=== PATIENT | female | born 1995 | race Caucasian/White ===

== ENCOUNTER 2019-01-28 13:54 | Inpatient (IN) | payer OTHER, MEDICAID ==
[~2019-01-28] VITALS: Ht 170.2 cm; Wt 99.0 kg
[~2019-01-28 13:54] MED LIST: DIVA-78 PO; LURA40 PO
[2019-01-28] MEDS ORDERED: PALI3 PO (16:07)
[2019-01-28] MEDS: INFLUENZA VIRUS VACCINE QVS 2019-20 (3YR+)/PF 60 MCG/0.5 ML SYRINGE IM ONE (16:15)
[2019-01-28] MEDS ORDERED: LORazepam 2 MG TABLET PO PRN (16:30)
[2019-01-28] MEDS ORDERED: ZOLPIDEM TARTRATE 10 MG TABLET PO PRN (16:30)
[2019-01-28] MEDS ORDERED: HALOPERIDOL 5 MG TABLET PO PRN (16:30)
[2019-01-28] MEDS ORDERED: PNEUMOCOCCAL VACCINE POLYVALENT 0.5 ML VIAL [PPSV23] IM ONE (16:45)
[2019-01-28 17:54] VITALS: BP 116/78
[2019-01-28] MEDS ORDERED: ALBUTEROL SULFATE HFA 90 MCG/PUFF 8 GM INHALER IH PRN (20:45)
[2019-01-29 06:39] VITALS: BP 125/76
[2019-01-29 08:01] LABS: BASOPHILS % (AUTO) 0.4 % (0.0-2.0); EOSINOPHILS % (AUTO) 2.8 % (1.0-6.0); HEMOGLOBIN 13.3 g/dL (12.0-16.0); LYMPHOCYTES # (AUTO) 2.2 K/uL (1.0-4.8); LYMPHOCYTES % (AUTO) 23.3 % (22.0-44.0); MEAN CORPUSCULAR HEMOGLOBIN 30.1 pg (26.0-34.0); MEAN CORPUSCULAR HGB CONC 34.2 G/dL (31.0-37.0); MEAN CORPUSCULAR VOLUME 88 fL (80-100); MONOCYTES # (AUTO) 0.8 K/uL (0.1-1.0); MONOCYTES % (AUTO) 8.1 % (2.0-9.0); NEUTROPHILS # (AUTO) 6.1 K/uL (1.8-7.7); NEUTROPHILS % (AUTO) 65.4 % (40.0-70.0); PLATELET COUNT (AUTO) 265 K/uL (150-450); RED BLOOD CELL COUNT(AUTO) 4.43 MIL/uL (4.00-5.20); RED CELL DISTRIBUTION WIDTH 13.4 % (11.5-14.5)
[2019-01-29 08:09] VITALS: BP 117/61
[2019-01-29 08:32] LABS: ALANINE AMINOTRANSFERASE 13 U/L (12-78); ALBUMIN 3.8 g/dL (3.4-5.0); ALKALINE PHOSPHATASE 81 U/L (46-116); ANION GAP 8 mmol/L (8-16); ASPARTATE AMINOTRANSFERASE 11 U/L (15-37); BILIRUBIN,TOTAL 0.3 mg/dL (0.1-1.0); CALCIUM, TOTAL 9.5 mg/dL (8.8-10.5); CARBON DIOXIDE 28 mmol/L (22-29); CHLORIDE 102 mmol/L (98-107); CHOL/HDL RATIO 2.1 (3.9-5.7); CHOLESTEROL 134 mg/dL (131-200); CREATININE 0.69 mg/dL (0.60-1.30); FREE T4 (FREE THYROXINE) 0.98 ng/dL (0.76-1.46); GLOMERULAR FILTR. RATE CALC > 60 mL/min (>60); GLUCOSE,RANDOM 90 mg/dL (70-110); HCG,QUANTITATIVE < 1 mIU/mL (0-6); HDL CHOLESTEROL 63 mg/dL (40-60); LDL CHOL (CALC.) 63 mg/dL (0-130); SODIUM SERUM 138 mmol/L (136-145); THYROID STIMULATING HORMONE 1.46 uIU/mL (0.36-3.74); TOTAL PROTEIN, SERUM 7.8 g/dL (6.4-8.2); TRIGLYCERIDES 39 mg/dL (15-150); UREA NITROGEN, BLOOD 16 mg/dL (7-18)
[2019-01-29 09:48] LABS: HEMOGLOBIN A1C 5.8 % (4.5-6.2)
[2019-01-29] MEDS ORDERED: MAGNESIUM HYDROXIDE SUSPENSION 30 ML UDCUP PO PRN (13:45)
[2019-01-29] MEDS ORDERED: ONDANSETRON HCL 4 MG TABLET PO PRN (13:45)
[2019-01-29] MEDS ORDERED: CloNIDine HCL 0.1 MG TABLET PO PRN (13:45)
[2019-01-29] MEDS ORDERED: NICOTINE 14 MG/24 HOUR PATCH TD PRN (13:45)
[2019-01-29] MEDS ORDERED: MAG HYDROX/AL HYDROX/SIMETH ES 30 ML SUSPENSION UDCUP PO PRN (13:45)
[2019-01-29] MEDS ORDERED: PETROLATUM,WHITE 28 GM JELLY TP PRN (13:45)
[2019-01-29] MEDS ORDERED: LOPERAMIDE HCL 2 MG CAPSULE PO PRN (13:45)
[2019-01-29] MEDS ORDERED: IBUPROFEN 400 MG TABLET PO PRN (13:45)
[2019-01-29] MEDS ORDERED: DOCUSATE SODIUM 100 MG CAPSULE PO PRN (13:45)
[2019-01-29] MEDS ORDERED: ACETAMINOPHEN 325 MG TABLET PO PRN (13:45)
[2019-01-29] MEDS ORDERED: GuaiFENesin/D-METHORPHAN [SUGAR-FREE] 200-20MG/10 ML SYRUP UDCUP PO PRN (13:45)
[2019-01-29 16:00] VITALS: BP 123/68
[2019-01-29] MEDS ORDERED: LURASIDONE HCL 40 MG TABLET PO SCH (17:00)
[2019-01-29] MEDS: INFLUENZA VIRUS VACCINE QVS 2019-20 (3YR+)/PF 60 MCG/0.5 ML SYRINGE IM ONE (17:03)
[2019-01-29] MEDS: ALBUTEROL SULFATE HFA 90 MCG/PUFF 8 GM INHALER IH PRN ×2 (17:25→23:28)
[2019-01-30 04:00] VITALS: BP 136/90
[2019-01-30] MEDS: ALBUTEROL SULFATE HFA 90 MCG/PUFF 8 GM INHALER IH PRN ×3 (05:30→20:32)
[2019-01-30 08:11] VITALS: BP 109/63
[2019-01-30] MEDS: PALIPERIDONE 3 MG ER TABLET PO SCH (08:16)
[2019-01-30 16:11] VITALS: BP 119/60
[2019-01-31 00:42] VITALS: BP 134/69
[2019-01-31] MEDS: ALBUTEROL SULFATE HFA 90 MCG/PUFF 8 GM INHALER IH PRN (04:03)
[2019-01-31] MEDS: PALIPERIDONE 3 MG ER TABLET PO SCH (08:09)
[2019-01-31 08:34] VITALS: BP 119/64
== END 2019-01-31 11:10 | disposition home or self-care (01) | DRG 885 ==
LOC: B3A 16:19
PROVIDERS: ADMIT Psychiatry & Neurology Psychiatry; ATTEND Psychiatry & Neurology Psychiatry
DX: F20.0 Paranoid schizophrenia (principal); F10.10 Alcohol abuse, uncomplicated; J45.909 Unspecified asthma, uncomplicated; F19.10 Other psychoactive substance abuse, uncomplicated; Z88.8 Allergy status to other drugs, medicaments and biological substances; Z71.51 Drug abuse counseling and surveillance of drug abuser; Z71.41 Alcohol abuse counseling and surveillance of alcoholic
CPT/HCPCS: 83036; 84439; 84443; 87081; 90686; 90732; J3535

== ENCOUNTER 2019-12-13 05:50 | Inpatient (IN) | payer BC, MEDICAID ==
[~2019-12-13] VITALS: Ht 170.2 cm; Wt 105.1 kg
[~2019-12-13 05:50] MED LIST changes: -DIVA-78 PO; -LURA40 PO; +PALI3TAB14 PO
[2019-12-13] MEDS ORDERED: LURA40TA2 PO (05:59)
[2019-12-13] MEDS ORDERED: MELA1TAB28 PO (05:59)
[2019-12-13 06:31] LABS: BASOPHILS % (AUTO) 0.5 % (0.0-2.0); EOSINOPHILS % (AUTO) 1.4 % (1.0-6.0); HEMATOCRIT 37.4 % (36-46); HEMOGLOBIN 12.5 g/dL (12.0-16.0); LYMPHOCYTES # (AUTO) 2.5 K/uL (1.0-4.8); LYMPHOCYTES % (AUTO) 20.6 % (22.0-44.0); MEAN CORPUSCULAR HEMOGLOBIN 29.3 pg (26.0-34.0); MEAN CORPUSCULAR HGB CONC 33.3 G/dL (31.0-37.0); MEAN CORPUSCULAR VOLUME 88 fL (80-100); MONOCYTES # (AUTO) 0.8 K/uL (0.1-1.0); MONOCYTES % (AUTO) 6.6 % (2.0-9.0); NEUTROPHILS # (AUTO) 8.5 K/uL (1.8-7.7); NEUTROPHILS % (AUTO) 70.9 % (40.0-70.0); PLATELET COUNT (AUTO) 237 K/uL (150-450); RED BLOOD CELL COUNT(AUTO) 4.27 MIL/uL (4.00-5.20); RED CELL DISTRIBUTION WIDTH 13.7 % (11.5-14.5)
[2019-12-13 06:36] LABS: ANION GAP 7 mmol/L (8-16); CALCIUM, TOTAL 8.9 mg/dL (8.8-10.5); CARBON DIOXIDE 27 mmol/L (22-29); CHLORIDE 102 mmol/L (98-107); CREATININE 1.07 mg/dL (0.60-1.30); GLOMERULAR FILTR. RATE CALC > 60 mL/min (>60); GLUCOSE,RANDOM 106 mg/dL (70-110); POTASSIUM 3.8 mmol/L (3.5-5.1); SODIUM SERUM 136 mmol/L (136-145); UREA NITROGEN, BLOOD 15 mg/dL (7-18)
[2019-12-13 06:41] LABS: ALANINE AMINOTRANSFERASE 17 U/L (12-78); ALBUMIN 3.6 g/dL (3.4-5.0); ALKALINE PHOSPHATASE 76 U/L (46-116); ASPARTATE AMINOTRANSFERASE 9 U/L (15-37); BILIRUBIN,TOTAL 0.3 mg/dL (0.1-1.0); TOTAL PROTEIN, SERUM 7.3 g/dL (6.4-8.2)
[2019-12-13 06:42] LABS: ACETAMINOPHEN < 2 mcg/mL (10-30)
[2019-12-13 06:49] LABS: SALICYLATE 2.8 mg/dL (2.8-20.0)
[2019-12-13 08:59] LABS: AMPHET/METH SCREEN,URINE NEGATIVE (NEGATIVE); BARBITURATE SCREEN, URINE NEGATIVE (NEGATIVE); BENZODIAZEPINES SCREEN,URINE NEGATIVE (NEGATIVE); CANNABINOID SCREEN,URINE NEGATIVE (NEGATIVE); COCAINE SCREEN,URINE NEGATIVE (NEGATIVE); METHADONE SCREEN, URINE NEGATIVE (NEGATIVE); OPIATE SCREEN,URINE NEGATIVE (NEGATIVE)
[2019-12-13 09:00] LABS: PHENCYCLIDINE SCREEN,URINE NEGATIVE (NEGATIVE)
[2019-12-13] MEDS ORDERED: ALBUTEROL SULFATE HFA 90 MCG/PUFF 8 GM INHALER IH ONE (13:30)
[2019-12-13] MEDS ORDERED: HydrOXYzine PAMOATE 50 MG CAPSULE PO PRN (16:45)
[2019-12-13] MEDS ORDERED: PROMETHAZINE HCL 25 MG TABLET PO PRN (16:45)
[2019-12-13] MEDS ORDERED: ZOLPIDEM TARTRATE 10 MG TABLET PO PRN (16:45)
[2019-12-13] MEDS ORDERED: TUBERCULIN, PURIFIED PROTEIN DERIVATIVE 5 TU/0.1 ML SYRINGE ID ONE (16:45)
[2019-12-13] MEDS ORDERED: ACETAMINOPHEN 325 MG TABLET PO PRN (16:45)
[2019-12-13] MEDS ORDERED: MAG HYDROX/AL HYDROX/SIMETH ES 30 ML SUSPENSION UDCUP PO PRN (16:45)
[2019-12-13] MEDS ORDERED: LORazepam 2 MG TABLET PO PRN (16:45)
[2019-12-13] MEDS ORDERED: GuaiFENesin/D-METHORPHAN [SUGAR-FREE] 200-20MG/10 ML SYRUP UDCUP PO PRN (16:45)
[2019-12-13] MEDS ORDERED: LOPERAMIDE HCL 2 MG CAPSULE PO PRN (16:45)
[2019-12-13] MEDS ORDERED: MAGNESIUM HYDROXIDE SUSPENSION 30 ML UDCUP PO PRN (16:45)
[2019-12-13] MEDS ORDERED: OLANZapine 5 MG RAPDIS TABLET PO PRN (16:45)
[2019-12-13] MEDS ORDERED: [UNRECOGNIZED DRUG - CODE] PO (16:51)
[2019-12-13] MEDS ORDERED: BUDE10.26 IH (16:51)
[2019-12-13] MEDS ORDERED: CHOL100018 PO (16:51)
[2019-12-13] MEDS ORDERED: ALBU90AE2 IH (16:51)
[2019-12-13] MEDS ORDERED: MELA5TAB3 PO (16:51)
[2019-12-13 17:15] LABS: HCG,QUANTITATIVE < 1 mIU/mL (0-6)
[2019-12-13] MEDS: THIAMINE 100 MG TABLET PO SCH (18:33)
[2019-12-13 19:00] VITALS: BP 105/59
[2019-12-13] MEDS ORDERED: LITHIUM CARBONATE 300 MG CAPSULE PO SCH (21:00)
[2019-12-13] MEDS ORDERED: ASENAPINE 5 MG SUBLINGUAL TABLET SL SCH (21:00)
[2019-12-13] MEDS: ALBUTEROL SULFATE HFA 90 MCG/PUFF 8 GM INHALER IH PRN (21:15)
[2019-12-13] MEDS: MELATONIN 5 MG TABLET PO SCH (21:16)
[2019-12-14] MEDS: ALBUTEROL SULFATE HFA 90 MCG/PUFF 8 GM INHALER IH PRN ×3 (04:10→19:48)
[2019-12-14 06:37] LABS: LITHIUM < 0.20 mmol/L (0.60-1.20)
[2019-12-14 06:41] LABS: BASOPHILS % (AUTO) 0.5 % (0.0-2.0); EOSINOPHILS % (AUTO) 3.3 % (1.0-6.0); HEMATOCRIT 39.2 % (36-46); HEMOGLOBIN 13.1 g/dL (12.0-16.0); LYMPHOCYTES # (AUTO) 2.6 K/uL (1.0-4.8); LYMPHOCYTES % (AUTO) 25.3 % (22.0-44.0); MEAN CORPUSCULAR HEMOGLOBIN 29.4 pg (26.0-34.0); MEAN CORPUSCULAR HGB CONC 33.3 G/dL (31.0-37.0); MEAN CORPUSCULAR VOLUME 88 fL (80-100); MONOCYTES # (AUTO) 0.8 K/uL (0.1-1.0); MONOCYTES % (AUTO) 7.4 % (2.0-9.0); NEUTROPHILS # (AUTO) 6.5 K/uL (1.8-7.7); NEUTROPHILS % (AUTO) 63.5 % (40.0-70.0); PLATELET COUNT (AUTO) 250 K/uL (150-450); RED BLOOD CELL COUNT(AUTO) 4.44 MIL/uL (4.00-5.20); RED CELL DISTRIBUTION WIDTH 13.4 % (11.5-14.5)
[2019-12-14] MEDS: LURASIDONE HCL 60 MG TABLET PO SCH (06:43)
[2019-12-14 06:50] LABS: CHOL/HDL RATIO 2.5 (3.9-5.7); CHOLESTEROL 123 mg/dL (131-200); HDL CHOLESTEROL 49 mg/dL (40-60); LDL CHOL (CALC.) 63 mg/dL (0-130); TRIGLYCERIDES 53 mg/dL (15-150)
[2019-12-14 06:56] LABS: HEMOGLOBIN A1C 5.8 % (3.8-5.6)
[2019-12-14 08:00] VITALS: BP 115/56
[2019-12-14] MEDS ORDERED: BUDESONIDE 180 MCG/INH INHALER [120] IH SCH (09:00)
[2019-12-14] MEDS: NICOTINE 14 MG/24 HOUR PATCH TD SCH ×2 (09:00→12:02)
[2019-12-14] MEDS: FOLIC ACID 1 MG TABLET PO SCH (11:32)
[2019-12-14] MEDS: THIAMINE 100 MG TABLET PO SCH ×2 (11:32→17:47)
[2019-12-14] MEDS: BUDESONIDE/FORMOTEROL FUMARATE 160-4.5 MCG/PUFF 6.9 GM INHALER IH SCH ×2 (11:33→17:47)
[2019-12-14] MEDS: MULTIVITAMINS WITH MINERALS, THERAPEUTIC TABLET PO SCH (11:34)
[2019-12-14] MEDS: PARoxetine HCL 20 MG TABLET PO SCH (11:34)
[2019-12-14 12:00] VITALS: BP 119/65
[2019-12-14 12:42] VITALS: BP 119/65
[2019-12-14 17:53] VITALS: BP 112/66
[2019-12-14] MEDS: MELATONIN 5 MG TABLET PO SCH (20:18)
[2019-12-15] MEDS: LURASIDONE HCL 60 MG TABLET PO SCH (06:58)
[2019-12-15] MEDS: ALBUTEROL SULFATE HFA 90 MCG/PUFF 8 GM INHALER IH PRN (08:32)
[2019-12-15 08:42] VITALS: BP 115/54
[2019-12-15] MEDS: MULTIVITAMINS WITH MINERALS, THERAPEUTIC TABLET PO SCH (09:29)
[2019-12-15] MEDS: PARoxetine HCL 20 MG TABLET PO SCH (09:29)
[2019-12-15] MEDS: FOLIC ACID 1 MG TABLET PO SCH (09:29)
[2019-12-15] MEDS: BUDESONIDE/FORMOTEROL FUMARATE 160-4.5 MCG/PUFF 6.9 GM INHALER IH SCH ×2 (09:29→16:32)
[2019-12-15] MEDS: THIAMINE 100 MG TABLET PO SCH ×2 (09:29→16:32)
[2019-12-15] MEDS: NICOTINE 14 MG/24 HOUR PATCH TD SCH (09:30)
[2019-12-15 17:57] VITALS: BP 108/54
[2019-12-15] MEDS ORDERED: MELA5TAB3 PO (19:07)
[2019-12-15] MEDS ORDERED: PARO-37 PO (19:07)
[2019-12-15] MEDS ORDERED: LURA60TA PO (19:07)
[2019-12-15] MEDS: MELATONIN 5 MG TABLET PO SCH (20:23)
[2019-12-16] MEDS ORDERED: LURASIDONE HCL 80 MG TABLET PO SCH (07:30)
[2019-12-16] MEDS: ALBUTEROL SULFATE HFA 90 MCG/PUFF 8 GM INHALER IH PRN (08:21)
[2019-12-16] MEDS: BUDESONIDE/FORMOTEROL FUMARATE 160-4.5 MCG/PUFF 6.9 GM INHALER IH SCH (08:22)
[2019-12-16] MEDS: FOLIC ACID 1 MG TABLET PO SCH (08:24)
[2019-12-16] MEDS: MULTIVITAMINS WITH MINERALS, THERAPEUTIC TABLET PO SCH (08:24)
[2019-12-16] MEDS: PARoxetine HCL 20 MG TABLET PO SCH (08:24)
[2019-12-16] MEDS: NICOTINE 14 MG/24 HOUR PATCH TD SCH (08:24)
[2019-12-16] MEDS: THIAMINE 100 MG TABLET PO SCH (08:25)
== END 2019-12-16 13:40 | disposition home or self-care (01) | DRG 885 ==
LOC: EMS 05:50 → 3EI 16:39
PROVIDERS: ADMIT Psychiatry & Neurology Psychiatry; ATTEND Psychiatry & Neurology Psychiatry
DX: F25.9 Schizoaffective disorder, unspecified (principal); R45.851 Suicidal ideations; Z81.8 Family history of other mental and behavioral disorders; J45.909 Unspecified asthma, uncomplicated; Z88.8 Allergy status to other drugs, medicaments and biological substances; F12.90 Cannabis use, unspecified, uncomplicated; D72.829 Elevated white blood cell count, unspecified; F31.9 Bipolar disorder, unspecified; Z91.19 Patient's noncompliance with other medical treatment and regimen
CPT/HCPCS: 83036; 86592; G0480; G0481; J3535

== ENCOUNTER 2020-08-22 16:11 | Emergency (ER) | payer BC, OTHER ==
[~2020-08-22] VITALS: Ht 170.2 cm; Wt 86.4 kg
[~2020-08-22 16:11] MED LIST changes: +BUDE10.26 IH; +LURA80TA2 PO; +MELA5TAB3 PO; +OMEG-135 PO; -PALI3TAB14 PO; +PARO-37 PO
[2020-08-22 16:13] VITALS: BP 118/67
== END 2020-08-22 17:49 | disposition left against medical advice (07) ==
LOC: EMS 16:13
DX: R44.0 Auditory hallucinations (principal); Z53.21 Procedure and treatment not carried out due to patient leaving prior to being seen by health care provider

== ENCOUNTER 2020-10-12 01:19 | Inpatient (IN) | payer OTHER, MEDICAID ==
[~2020-10-12] VITALS: Ht 170.2 cm; Wt 108.5 kg
[2020-10-12] MEDS ORDERED: ZOLPIDEM TARTRATE 10 MG TABLET PO PRN (02:15)
[2020-10-12] MEDS ORDERED: HALOPERIDOL 5 MG TABLET PO PRN (02:15)
[2020-10-12 02:54] LABS: COVID AG,FIA SOURCE NASOPHARYNGEAL
[2020-10-12 03:10] LABS: BASOPHILS % (AUTO) 0.5 % (0.0-2.0); EOSINOPHILS % (AUTO) 3.5 % (1.0-6.0); HEMATOCRIT 36.7 % (36-46); HEMOGLOBIN 12.1 g/dL (12.0-16.0); LYMPHOCYTES # (AUTO) 2.3 K/uL (1.0-4.8); LYMPHOCYTES % (AUTO) 21.8 % (22.0-44.0); MEAN CORPUSCULAR HEMOGLOBIN 29.3 pg (26.0-34.0); MEAN CORPUSCULAR VOLUME 89 fL (80-100); MONOCYTES # (AUTO) 0.8 K/uL (0.1-1.0); MONOCYTES % (AUTO) 7.6 % (2.0-9.0); NEUTROPHILS # (AUTO) 6.9 K/uL (1.8-7.7); NEUTROPHILS % (AUTO) 66.6 % (40.0-70.0); PLATELET COUNT (AUTO) 240 K/uL (150-450); RED BLOOD CELL COUNT(AUTO) 4.14 MIL/uL (4.00-5.20); RED CELL DISTRIBUTION WIDTH 13.3 % (11.5-14.5)
[2020-10-12 03:17] LABS: APPEARANCE,URINE CLEAR (CLEAR); BILIRUBIN,URINE NEGATIVE (NEGATIVE); GLUCOSE, URINE (UA) NEGATIVE (NEGATIVE); KETONES,URINE NEGATIVE (NEGATIVE); LEUKOCYTE ESTERASE ,URINE NEGATIVE (NEGATIVE); NITRATE,URINE NEGATIVE (NEGATIVE); OCCULT BLOOD,URINE NEGATIVE (NEGATIVE); PROTEIN,URINE NEGATIVE (NEGATIVE); UROBILINOGEN,URINE 0.2 mg/dL (<=1.0)
[2020-10-12 03:20] LABS: CALCIUM, TOTAL 8.4 mg/dL (8.8-10.5); CARBON DIOXIDE 23 mmol/L (22-29); CHLORIDE 103 mmol/L (98-107); CREATININE 0.86 mg/dL (0.60-1.30); GLOMERULAR FILTR. RATE CALC > 60 mL/min (>60); GLUCOSE,RANDOM 107 mg/dL (70-110); POTASSIUM 3.7 mmol/L (3.5-5.1); UREA NITROGEN, BLOOD 20 mg/dL (7-18)
[2020-10-12 03:24] LABS: AMPHET/METH SCREEN,URINE NEGATIVE (NEGATIVE); BARBITURATE SCREEN, URINE NEGATIVE (NEGATIVE); BENZODIAZEPINES SCREEN,URINE NEGATIVE (NEGATIVE); CANNABINOID SCREEN,URINE NEGATIVE (NEGATIVE); COCAINE SCREEN,URINE NEGATIVE (NEGATIVE); METHADONE SCREEN, URINE NEGATIVE (NEGATIVE); OPIATE SCREEN,URINE NEGATIVE (NEGATIVE)
[2020-10-12 03:26] LABS: PHENCYCLIDINE SCREEN,URINE NEGATIVE (NEGATIVE)
[2020-10-12 03:29] LABS: ANION GAP 11 mmol/L (8-16); SODIUM SERUM 137 mmol/L (136-145)
[2020-10-12 03:31] LABS: ALANINE AMINOTRANSFERASE 21 U/L (12-78); ALBUMIN 3.5 g/dL (3.4-5.0); ALKALINE PHOSPHATASE 62 U/L (46-116); ASPARTATE AMINOTRANSFERASE 15 U/L (15-37); BILIRUBIN,TOTAL 0.2 mg/dL (0.1-1.0); HCG,QUANTITATIVE < 1 mIU/mL (0-6); TOTAL PROTEIN, SERUM 7.5 g/dL (6.4-8.2)
[2020-10-12] MEDS ORDERED: ACETAMINOPHEN 325 MG TABLET PO PRN (08:45)
[2020-10-12] MEDS ORDERED: CloNIDine HCL 0.1 MG TABLET PO PRN (08:45)
[2020-10-12] MEDS ORDERED: BACITRACIN 28 GM OINTMENT TP PRN (08:45)
[2020-10-12] MEDS ORDERED: ONDANSETRON HCL 4 MG TABLET PO PRN (08:45)
[2020-10-12] MEDS ORDERED: OMEPRAZOLE 20 MG CAPSULE PO PRN (08:45)
[2020-10-12] MEDS ORDERED: PETROLATUM,WHITE 28 GM JELLY TP PRN (08:45)
[2020-10-12] MEDS ORDERED: DOCUSATE SODIUM 100 MG CAPSULE PO PRN (08:45)
[2020-10-12] MEDS ORDERED: MELATONIN 5 MG TABLET PO PRN (08:45)
[2020-10-12] MEDS ORDERED: IBUPROFEN 600 MG TABLET PO PRN (08:45)
[2020-10-12] MEDS ORDERED: MAGNESIUM HYDROXIDE SUSPENSION 30 ML UDCUP PO PRN (08:45)
[2020-10-12] MEDS ORDERED: ALBUTEROL SULFATE HFA 90 MCG/PUFF 8 GM INHALER IH PRN (08:45)
[2020-10-12] MEDS ORDERED: LOPERAMIDE HCL 2 MG CAPSULE PO PRN (08:45)
[2020-10-12] MEDS ORDERED: MAG HYDROX/AL HYDROX/SIMETH ES 30 ML SUSPENSION UDCUP PO PRN (08:45)
[2020-10-12] MEDS ORDERED: BENZOCAINE/MENTHOL LOZENGE PO PRN (08:45)
[2020-10-12 08:57] VITALS: BP 113/72
[2020-10-12] MEDS: LORazepam 2 MG TABLET PO PRN (09:16)
[2020-10-12] MEDS: OMEGA-3/DHA/EPA/FISH OIL 1,000 MG CAPSULE PO SCH (09:16)
[2020-10-12] MEDS: BUDESONIDE/FORMOTEROL FUMARATE 160-4.5 MCG/PUFF 10.2 GM INHALER IH SCH ×2 (13:15→17:30)
[2020-10-12] MEDS: LURASIDONE HCL 80 MG TABLET PO SCH (20:53)
[2020-10-13 08:15] VITALS: BP 120/71
[2020-10-13 09:52] LABS: CHOL/HDL RATIO 2.2 (3.9-5.7)
[2020-10-13] MEDS: BUDESONIDE/FORMOTEROL FUMARATE 160-4.5 MCG/PUFF 10.2 GM INHALER IH SCH ×2 (10:03→16:27)
[2020-10-13] MEDS: OMEGA-3/DHA/EPA/FISH OIL 1,000 MG CAPSULE PO SCH (10:03)
[2020-10-13] MEDS: PARoxetine HCL 20 MG TABLET PO SCH (10:03)
[2020-10-13] MEDS: LORazepam 2 MG TABLET PO PRN (10:07)
[2020-10-13 16:11] VITALS: BP 123/68
[2020-10-13] MEDS: LURASIDONE HCL 80 MG TABLET PO SCH (20:38)
[2020-10-14 04:57] VITALS: BP 116/69
[2020-10-14] MEDS: OMEGA-3/DHA/EPA/FISH OIL 1,000 MG CAPSULE PO SCH (09:20)
[2020-10-14] MEDS: PARoxetine HCL 20 MG TABLET PO SCH (09:20)
[2020-10-14] MEDS: BUDESONIDE/FORMOTEROL FUMARATE 160-4.5 MCG/PUFF 10.2 GM INHALER IH SCH ×2 (09:20→16:04)
[2020-10-14] MEDS: LORazepam 2 MG TABLET PO PRN ×2 (09:20→16:06)
[2020-10-14 09:27] VITALS: BP 125/77
[2020-10-14 16:13] VITALS: BP 125/77
[2020-10-14] MEDS: LURASIDONE HCL 80 MG TABLET PO SCH (20:06)
[2020-10-15 00:08] VITALS: BP 124/73
[2020-10-15 08:20] VITALS: BP 124/72
[2020-10-15] MEDS: PARoxetine HCL 20 MG TABLET PO SCH (09:21)
[2020-10-15] MEDS: BUDESONIDE/FORMOTEROL FUMARATE 160-4.5 MCG/PUFF 10.2 GM INHALER IH SCH ×2 (09:21→16:25)
[2020-10-15] MEDS: OMEGA-3/DHA/EPA/FISH OIL 1,000 MG CAPSULE PO SCH (09:21)
[2020-10-15 16:07] VITALS: BP 121/76
[2020-10-15] MEDS: LORazepam 2 MG TABLET PO PRN (18:46)
[2020-10-15] MEDS: LURASIDONE HCL 80 MG TABLET PO SCH (20:16)
[2020-10-16 04:46] VITALS: BP 122/74
[2020-10-16 08:21] VITALS: BP 109/60
[2020-10-16] MEDS: OMEGA-3/DHA/EPA/FISH OIL 1,000 MG CAPSULE PO SCH (08:43)
[2020-10-16] MEDS: PARoxetine HCL 20 MG TABLET PO SCH (08:43)
[2020-10-16] MEDS: BUDESONIDE/FORMOTEROL FUMARATE 160-4.5 MCG/PUFF 10.2 GM INHALER IH SCH (08:43)
[2020-10-16] MEDS ORDERED: LORazepam 1 MG TABLET ONE (10:47)
[2020-10-16 16:09] VITALS: BP 128/64
== END 2020-10-16 19:10 | disposition home or self-care (01) | DRG 885 ==
LOC: EMS 01:20 → B3A 03:00
PROVIDERS: ADMIT Psychiatry & Neurology Psychiatry; ATTEND Psychiatry & Neurology Psychiatry
DX: F20.0 Paranoid schizophrenia (principal); R45.851 Suicidal ideations; Z20.822 Contact with and (suspected) exposure to COVID-19; F17.210 Nicotine dependence, cigarettes, uncomplicated; F29 Unspecified psychosis not due to a substance or known physiological condition; F32.9 Major depressive disorder, single episode, unspecified; G47.00 Insomnia, unspecified; K59.00 Constipation, unspecified; F19.10 Other psychoactive substance abuse, uncomplicated; F41.9 Anxiety disorder, unspecified; Z88.8 Allergy status to other drugs, medicaments and biological substances; Z79.899 Other long term (current) drug therapy
CPT/HCPCS: 80053; 80061; 81003; 84702; 85025; 99285; G0480; J3535

== ENCOUNTER 2020-11-16 00:28 | Inpatient (IN) | payer OTHER, MEDICAID ==
[~2020-11-16] VITALS: Ht 170.2 cm; Wt 110.4 kg
[~2020-11-16 00:28] MED LIST changes: -MELA5TAB3 PO; -OMEG-135 PO
[2020-11-16] MEDS ORDERED: ZOLPIDEM TARTRATE 10 MG TABLET PO PRN (03:30)
[2020-11-16 04:40] VITALS: BP 120/70
[2020-11-16] MEDS ORDERED: BUDE10.26 NS (05:48)
[2020-11-16] MEDS ORDERED: LURA80TA2 PO (05:48)
[2020-11-16] MEDS ORDERED: PNEUMOCOCCAL VACCINE POLYVALENT 0.5 ML VIAL [PPSV23] IM. ONE (06:15)
[2020-11-16 08:22] VITALS: BP 118/67
[2020-11-16] MEDS: PARoxetine HCL 20 MG TABLET PO SCH (10:43)
[2020-11-16] MEDS: LORazepam 2 MG TABLET PO PRN ×2 (10:47→16:00)
[2020-11-16 16:13] VITALS: BP 114/64
[2020-11-16] MEDS: ALBUTEROL SULFATE HFA 90 MCG/PUFF 8 GM INHALER IH PRN (18:04)
[2020-11-16] MEDS: LURASIDONE HCL 80 MG TABLET PO SCH (20:01)
[2020-11-16] MEDS ORDERED: MAGNESIUM HYDROXIDE SUSPENSION 30 ML UDCUP PO PRN (20:30)
[2020-11-16] MEDS ORDERED: PETROLATUM,WHITE 28 GM JELLY TP PRN (20:30)
[2020-11-16] MEDS ORDERED: MAG HYDROX/AL HYDROX/SIMETH ES 30 ML SUSPENSION UDCUP PO PRN (20:30)
[2020-11-16] MEDS ORDERED: IBUPROFEN 600 MG TABLET PO PRN (20:30)
[2020-11-16] MEDS ORDERED: LOPERAMIDE HCL 2 MG CAPSULE PO PRN (20:30)
[2020-11-16] MEDS ORDERED: DOCUSATE SODIUM 100 MG CAPSULE PO PRN (20:30)
[2020-11-16] MEDS ORDERED: BACITRACIN 28 GM OINTMENT TP PRN (20:30)
[2020-11-16] MEDS ORDERED: OMEPRAZOLE 20 MG CAPSULE PO PRN (20:30)
[2020-11-16] MEDS ORDERED: BENZOCAINE/MENTHOL LOZENGE PO PRN (20:30)
[2020-11-16] MEDS ORDERED: CloNIDine HCL 0.1 MG TABLET PO PRN (20:30)
[2020-11-16] MEDS ORDERED: ACETAMINOPHEN 325 MG TABLET PO PRN (20:30)
[2020-11-16] MEDS ORDERED: ONDANSETRON HCL 4 MG TABLET PO PRN (20:30)
[2020-11-17] VITALS: BP 109/58
[2020-11-17] MEDS: LORazepam 2 MG TABLET PO PRN ×3 (01:20→21:21)
[2020-11-17 08:03] VITALS: BP 126/71
[2020-11-17] MEDS: PARoxetine HCL 20 MG TABLET PO SCH (08:14)
[2020-11-17] MEDS: FLUTICASONE/VILANTEROL 200-25 MCG/INH INHALER [14] IH SCH (08:17)
[2020-11-17 16:04] VITALS: BP 129/70
[2020-11-17] MEDS: LURASIDONE HCL 80 MG TABLET PO SCH (20:04)
[2020-11-18 00:32] VITALS: BP 112/68
[2020-11-18 07:16] LABS: BASOPHILS % (AUTO) 0.6 % (0.0-2.0); HEMATOCRIT 40.5 % (36-46); HEMOGLOBIN 13.2 g/dL (12.0-16.0); LYMPHOCYTES # (AUTO) 2.7 K/uL (1.0-4.8); LYMPHOCYTES % (AUTO) 31.1 % (22.0-44.0); MEAN CORPUSCULAR HEMOGLOBIN 29.2 pg (26.0-34.0); MEAN CORPUSCULAR HGB CONC 32.7 G/dL (31.0-37.0); MEAN CORPUSCULAR VOLUME 89 fL (80-100); MONOCYTES # (AUTO) 0.8 K/uL (0.1-1.0); MONOCYTES % (AUTO) 8.8 % (2.0-9.0); NEUTROPHILS # (AUTO) 4.8 K/uL (1.8-7.7); NEUTROPHILS % (AUTO) 55.5 % (40.0-70.0); PLATELET COUNT (AUTO) 240 K/uL (150-450); RED BLOOD CELL COUNT(AUTO) 4.54 MIL/uL (4.00-5.20); RED CELL DISTRIBUTION WIDTH 13.6 % (11.5-14.5)
[2020-11-18 07:25] LABS: HEMOGLOBIN A1C 5.6 % (3.8-5.6)
[2020-11-18 07:42] LABS: ANION GAP 7 mmol/L (8-16); CARBON DIOXIDE 26 mmol/L (22-29); CHLORIDE 104 mmol/L (98-107); GLUCOSE,RANDOM 94 mg/dL (70-110); SODIUM SERUM 137 mmol/L (136-145); UREA NITROGEN, BLOOD 14 mg/dL (7-18)
[2020-11-18 07:43] LABS: ALANINE AMINOTRANSFERASE 16 U/L (12-78); ALBUMIN 3.2 g/dL (3.4-5.0); ALKALINE PHOSPHATASE 69 U/L (46-116); ASPARTATE AMINOTRANSFERASE 11 U/L (15-37); BILIRUBIN,TOTAL 0.3 mg/dL (0.1-1.0); CALCIUM, TOTAL 8.6 mg/dL (8.8-10.5); CHOL/HDL RATIO 2.7 (3.9-5.7); CHOLESTEROL 117 mg/dL (131-200); CREATININE 0.72 mg/dL (0.60-1.30); GLOMERULAR FILTR. RATE CALC > 60 mL/min (>60); HDL CHOLESTEROL 43 mg/dL (40-60); LDL CHOL (CALC.) 63 mg/dL (0-130); THYROID STIMULATING HORMONE 0.72 uIU/mL (0.36-3.74); TRIGLYCERIDES 55 mg/dL (15-150)
[2020-11-18 08:09] VITALS: BP 112/60
[2020-11-18] MEDS: LORazepam 2 MG TABLET PO PRN ×2 (08:09→14:36)
[2020-11-18] MEDS: FLUTICASONE/VILANTEROL 200-25 MCG/INH INHALER [14] IH SCH ×2 (08:10→14:40)
[2020-11-18] MEDS: ALBUTEROL SULFATE HFA 90 MCG/PUFF 8 GM INHALER IH PRN (08:11)
[2020-11-18] MEDS: HALOPERIDOL 5 MG TABLET PO PRN ×2 (09:39→14:36)
[2020-11-18 16:05] VITALS: BP 113/61
[2020-11-18] MEDS: LURASIDONE HCL 80 MG TABLET PO SCH (20:15)
[2020-11-19 00:47] VITALS: BP 110/63
[2020-11-19] MEDS: LORazepam 2 MG TABLET PO PRN ×2 (00:56→08:05)
[2020-11-19] MEDS: FLUTICASONE/VILANTEROL 200-25 MCG/INH INHALER [14] IH SCH (08:05)
[2020-11-19] MEDS: HALOPERIDOL 5 MG TABLET PO PRN (08:05)
[2020-11-19 08:13] VITALS: BP 120/79
[2020-11-19] MEDS ORDERED: LURA80TA2 PO (14:59)
[2020-11-19] MEDS ORDERED: FLUT1BLS IH (14:59)
[2020-11-19 16:54] VITALS: BP 125/81
== END 2020-11-19 17:20 | disposition home or self-care (01) | DRG 885 ==
LOC: B3A 03:33
PROVIDERS: ADMIT Psychiatry & Neurology Psychiatry; ATTEND Psychiatry & Neurology Psychiatry
DX: F31.9 Bipolar disorder, unspecified (principal); E66.9 Obesity, unspecified; Z68.38 Body mass index [BMI] 38.0-38.9, adult; F41.9 Anxiety disorder, unspecified; G47.00 Insomnia, unspecified; J45.909 Unspecified asthma, uncomplicated; K59.00 Constipation, unspecified; Z88.8 Allergy status to other drugs, medicaments and biological substances
CPT/HCPCS: 80053; 80061; 83036; 84439; 84443; 85025; A9575; J3535